=== PATIENT | male | born 1960 | race Caucasian/White ===

== ENCOUNTER 2022-11-09 19:59 | Emergency (ER) | payer BC, SELFPAY ==
--- NOTE | ~2022-11-09 | CT_ITS ---
EXAMINATION: CT ABDOMEN AND PELVIS WITHOUT CONTRAST CLINICAL INFORMATION: Right-sided flank pain. Hematuria. COMPARISON: None TECHNIQUE: Multidetector volumetric imaging was performed from the superior aspect of the liver through the pubic symphysis. Sagittal and coronal reformatted images were obtained on the technologist's workstation. This CT examination was performed using dose optimization techniques as appropriate, variously including the following: *Automated exposure control *Adjustment of mA and/or kV according to patient size (this includes techniques or standardized protocols for targeted exams where dose is matched to indication/reason for exam; i.e. extremities or head) *Use of iterative reconstruction technique DLP: 789 mGy-cm FINDINGS: LUNG BASES: The visualized lung bases are unremarkable. LIVER, GALLBLADDER, AND BILIARY TREE: There are small scattered hypodensities in the liver too small to characterize. Likely hepatic cysts. No intrahepatic bile duct dilatation. The gallbladder is unremarkable with no evidence of radiopaque gallstones, gallbladder wall thickening, or obvious pericholecystic inflammatory changes. PANCREAS: Unremarkable. SPLEEN: Unremarkable. ADRENAL GLANDS: Unremarkable. KIDNEYS AND URETERS: 5 mm stone at the right ureterovesical junction. Image [id number] series 4. There is mild hydronephrosis of the right kidney. There are 2 punctate stones at the midpole of the right kidney. There is a less than 1 mm stone at the lower pole left kidney. No ureteral stone or hydronephrosis. BLADDER: Unremarkable. GASTROINTESTINAL TRACT: The small and large bowel are unremarkable. The appendix is unremarkable. ABDOMINAL WALL: No significant hernia is appreciated. LYMPH NODES: Normal. VASCULAR: Unremarkable. PELVIC VISCERA: Prostate measures 5.6 cm transverse. OSSEOUS STRUCTURES: Unremarkable. CT/CT abdomen pelvis wo IV con IMPRESSION: 5 mm stone at the right ureterovesical junction causing mild hydronephrosis of right kidney. Fleischner guidelines were followed.
--- NOTE | 2022-11-09 20:16 | ED_ITS ---
HPI - Abdominal Pain General Chief Complaint: Abdominal Pain <RADHA Boss - Last Filed: 11/09/22 20:19> Stated Complaint: ?Kidney stones <RADHA Boss - Last Filed: 11/09/22 20:19> Time Seen by Provider: 11/09/22 23:20 <RADHA Boss - Last Filed: 11/09/22 20:19> Source: patient <Jarred Grover MD - Last Filed: 11/10/22 06:32> Mode of arrival: ambulatory <Jarred Grover MD - Last Filed: 11/10/22 06:32> Limitations: no limitations <Jarred Grover MD - Last Filed: 11/10/22 06:32> History of Present Illness HPI narrative: Patient with no history of kidney problems in the past no history of kidney stone been having pain for last 3 days and right lower abdomen now radiating to the right lower back notice small amount of blood [facility] <Jarred Grover MD - Last Filed: 11/10/22 06:32> Related Data Home Medications: Previous Rx's Medication Instructions Recorded oxycodone-acetaminophen 5 mg-325 1 tab PO Q6H PRN pain #20 tabs 11/09/22 mg tablet (Percocet) tamsulosin 0.4 mg capsule (Flomax) 0.4 mg PO BEDTIME #10 caps 11/09/22 <RADHA Boss - Last Filed: 11/09/22 20:19> Allergies/Adverse Reactions: Allergies Allergy/AdvReac Type Severity Reaction Status Date / Time No Known Allergies Allergy Verified 11/09/22 20:16 <RADHA Boss - Last Filed: 11/09/22 20:19> Review of Systems Review of Systems Yes all other systems are reviewed and are negative <Jarred Grover MD - Last Filed: 11/10/22 06:32> [facility] Social History Social History: Social History Alcohol intake: current Alcohol intake frequency: holidays/special occasions only Alcohol type: wine and hard liquor Smoked in Last 30 Days: No Use of substances other than those prescribed or required for medical reasons: No Advance Directives: No Advance Directives Information Provided: Yes <RADHA Boss - Last Filed: 11/09/22 20:19> Physical Exam ED Vital Signs: Vital Signs - 24 hr 11/09/22 20:17 11/09/22 23:12 11/10/22 00:23 Temperature 98.1 F 99.0 F Pulse Rate 76 62 Respiratory Rate 16 16 16 Blood Pressure 130/76 148/80 H Pulse Oximetry 96 98 Oxygen Delivery Method Room Air Room Air BMI result Body Mass Index 32.6 <RADHA Boss - Last Filed: 11/09/22 20:19> Vital Signs - 24 hr 11/09/22 20:17 11/09/22 23:12 11/10/22 00:23 Temperature 98.1 F 99.0 F Pulse Rate 76 62 Respiratory Rate 16 16 16 Blood Pressure 130/76 148/80 H Pulse Oximetry 96 98 Oxygen Delivery Method Room Air Room Air BMI result Body Mass Index 32.6 <Jarred Grover MD - Last Filed: 11/10/22 06:32> Appearance: Alert. Oriented X3. No acute distress. Eyes: PERRLA, No Nystagmus ENT: Pharynx normal. Oral Mucosa moist Neck: Normal inspection. Neck supple. CVS: Normal heart rate and rhythm. Pulses normal. Respiratory: No respiratory distress. Equal air entry bilateral, no wheezing/rales/rhonchi Abdomen: Soft and nontender. Bowel sounds are present, no mass palpable, right CVA tenderness Skin: Skin warm and dry. Normal skin color. Normal skin turgor. Extremities: No lower extremity edema. No calf tendernessNo cerebellar signs , cranial nerves II-XII intact <Jarred Grover MD - Last Filed: 11/10/22 06:32> Course Course Course Narrative: RME - 62 yo male with no significant medical history presents to the ER for evaluation of intermittent right sided flank pain for the last 3 days. States it started RLQ with some difficulty urinating and then has been in the right back since. Went to urgent care today where he was found to have microscopic hematuria, told to come to the ER for further evaluation of possible kidney stones. Appears well in triage. No N/V/D, fever or dysuria. VSS. Will get labs, UA, and CT scan for further evaluation. <RADHA Boss - Last Filed: 11/09/22 20:19> Medical Decision Making Medical Decision Making [facility] Narrative: Patient with 5 mm UVJ stone with mild hydronephrosis level creatinine was 1.76 patient denied any history of kidney problems in the past. Patient was given 2 L of IV fluid advised to follow up with PCP/urologist in 2 days to recheck his kidney functions advised to drink plenty of fluid patient is pain- free at this time <Jarred Grover MD - Last Filed: 11/10/22 06:32> Lab Data [facility] Lab Attestation statement: I reviewed the patient's lab results. <Jarred Grover MD - Last Filed: 11/10/22 06:32> Result Diagrams: 11/09/22 23:00 11/09/22 23:00 <RADHA Boss - Last Filed: 11/09/22 20:19> Labs: Lab Results 11/09/22 11/09/22 11/09/22 Range/Units 23:00 23:00 23:03 WBC 8.1 (4.8-10.8) X10*3/uL RBC 4.62 (4.60-5.80) X10*6/uL Hgb 14.6 (14.0-18.0) g/dl Hct 40.6 L (42.0-52.0) % MCV 87.9 (80.0-98.0) fL MCH 31.6 (27.0-33.0) pg MCHC 36.0 (31.0-36.0) g/dl RDW 11.7 (11.0-16.0) % Plt Count 181 (160-400) X10*3/uL MPV 9.9 (9.4-12.4) fL Immature Gran % (Auto) 0.2 (0.0-0.4) % Neut % (Auto) 66.7 (45-73) % Lymph % (Auto) 22.0 (20-40) % [place] % (Auto) 9.6 (2-11) % Eos % (Auto) 1.1 (0-4) % Baso % (Auto) 0.4 (0-2) % Lymph # (Auto) 1.8 (1.2-4.9) X10*3/uL [place] # (Auto) 0.8 (0.1-1.2) X10*3/uL Eos # (Auto) 0.1 (0.0-0.4) X10*3/uL Baso # (Auto) 0.0 (0.0-0.2) X10*3/uL Abs Immat Gran (auto) 0.02 (0.00-0.03) X10*3/uL Absolute Neuts (auto) 5.4 (2.0-8.3) x10*3/uL Absolute Nucleated RBC 0.000 (0.0-0.012) X10*3/uL Nucleated RBC % (auto) 0.0 (0.0-0.2) /100WBC Sodium 141 (135-145) mmol/L Potassium 3.8 (3.3-5.1) mmol/L Chloride 103 (96-108) mmol/L Carbon Dioxide 25 (22-29) mmol/L Anion Gap 17 (12-20) BUN 21 H (9-16) mg/dL Creatinine 1.76 H (0.5-1.4) mg/dL Estim Creat Clear Calc 49.2 Estimated GFR 39 Random Glucose 90 (60-115) mg/dL Calcium 9.0 (8.4-10.2) mg/dL Magnesium 1.9 (1.6-2.6) mg/dL Total Bilirubin 0.6 (0.0-1.0) mg/dL Direct Bilirubin 0.2 (0.0-0.5) mg/dL AST 17 (5-37) U/L ALT 16 (0-40) U/L Alkaline Phosphatase 47 (39-117) U/L Total Protein 6.1 L (6.5-8.0) g/dL Albumin 4.2 (3.5-5.0) g/dL Urine Color Yellow Urine Appearance Clear Urine pH 5.5 (5.0-9.0) Ur Specific [place] 1.010 (1.005-1.025) Urine Protein Negative (Neg-Trace) mg/dL Urine Glucose (UA) Negative (Negative) mg/dL Urine Ketones 15 (Negative) mg/dL Urine Blood Negative (Negative) Urine Nitrite Negative (Negative) Ur Leukocyte Esterase Negative (Negative) <RADHA Boss - Last Filed: 11/09/22 20:19> Lab Results 11/09/22 11/09/22 11/09/22 Range/Units 23:00 23:00 23:03 WBC 8.1 (4.8-10.8) X10*3/uL RBC 4.62 (4.60-5.80) X10*6/uL Hgb 14.6 (14.0-18.0) g/dl Hct 40.6 L (42.0-52.0) % MCV 87.9 (80.0-98.0) fL MCH 31.6 (27.0-33.0) pg MCHC 36.0 (31.0-36.0) g/dl RDW 11.7 (11.0-16.0) % Plt Count 181 (160-400) X10*3/uL MPV 9.9 (9.4-12.4) fL Immature Gran % (Auto) 0.2 (0.0-0.4) % Neut % (Auto) 66.7 (45-73) % Lymph % (Auto) 22.0 (20-40) % [place] % (Auto) 9.6 (2-11) % Eos % (Auto) 1.1 (0-4) % Baso % (Auto) 0.4 (0-2) % Lymph # (Auto) 1.8 (1.2-4.9) X10*3/uL [place] # (Auto) 0.8 (0.1-1.2) X10*3/uL Eos # (Auto) 0.1 (0.0-0.4) X10*3/uL Baso # (Auto) 0.0 (0.0-0.2) X10*3/uL Abs Immat Gran (auto) 0.02 (0.00-0.03) X10*3/uL Absolute Neuts (auto) 5.4 (2.0-8.3) x10*3/uL Absolute Nucleated RBC 0.000 (0.0-0.012) X10*3/uL Nucleated RBC % (auto) 0.0 (0.0-0.2) /100WBC Sodium 141 (135-145) mmol/L Potassium 3.8 (3.3-5.1) mmol/L Chloride 103 (96-108) mmol/L Carbon Dioxide 25 (22-29) mmol/L Anion Gap 17 (12-20) BUN 21 H (9-16) mg/dL Creatinine 1.76 H (0.5-1.4) mg/dL Estim Creat Clear Calc 49.2 Estimated GFR 39 Random Glucose 90 (60-115) mg/dL Calcium 9.0 (8.4-10.2) mg/dL Magnesium 1.9 (1.6-2.6) mg/dL Total Bilirubin 0.6 (0.0-1.0) mg/dL Direct Bilirubin 0.2 (0.0-0.5) mg/dL AST 17 (5-37) U/L ALT 16 (0-40) U/L Alkaline Phosphatase 47 (39-117) U/L Total Protein 6.1 L (6.5-8.0) g/dL Albumin 4.2 (3.5-5.0) g/dL Urine Color Yellow Urine Appearance Clear Urine pH 5.5 (5.0-9.0) Ur Specific [place] 1.010 (1.005-1.025) Urine Protein Negative (Neg-Trace) mg/dL Urine Glucose (UA) Negative (Negative) mg/dL Urine Ketones 15 (Negative) mg/dL Urine Blood Negative (Negative) Urine Nitrite Negative (Negative) Ur Leukocyte Esterase Negative (Negative) <Jarred Grover MD - Last Filed: 11/10/22 06:32> Medications Administered Discontinued Medications Generic Name Dose Route Start Last Admin Trade Name Alethea PRN Reason Stop Dose Admin Sodium Chloride 1,000 mls @ 999 mls/hr 11/10/22 00:03 11/10/22 01:35 Ns IV 11/10/22 01:03 Infused .Q1H1M ONE Infusion Sodium Chloride 1,000 mls @ 999 mls/hr 11/10/22 01:17 11/10/22 01:36 Ns IV 11/10/22 02:17 999 mls/hr .Q1H1M ONE Administration Morphine Sulfate 2 mg 11/10/22 00:13 11/10/22 00:23 Morphine Sulfate 2 Mg/Ml Cartridge IVPUSH 11/10/22 00:14 2 mg ONCE ONE Administration Protocol Tamsulosin HCl 0.4 mg 11/09/22 23:49 11/10/22 00:23 Tamsulosin Hcl 0.4 Mg Capsule PO 11/09/22 23:50 0.4 mg ONCE ONE Administration <RADHA Boss - Last Filed: 11/09/22 20:19> Medications Administered Discontinued Medications Generic Name Dose Route Start Last Admin Trade Name Alethea PRN Reason Stop Dose Admin Sodium Chloride 1,000 mls @ 999 mls/hr 11/10/22 00:03 11/10/22 01:35 Ns IV 11/10/22 01:03 Infused .Q1H1M ONE Infusion Sodium Chloride 1,000 mls @ 999 mls/hr 11/10/22 01:17 11/10/22 01:36 Ns IV 11/10/22 02:17 999 mls/hr .Q1H1M ONE Administration Morphine Sulfate 2 mg 11/10/22 00:13 11/10/22 00:23 Morphine Sulfate 2 Mg/Ml Cartridge IVPUSH 11/10/22 00:14 2 mg ONCE ONE Administration Protocol Tamsulosin HCl 0.4 mg 11/09/22 23:49 11/10/22 00:23 Tamsulosin Hcl 0.4 Mg Capsule PO 11/09/22 23:50 0.4 mg ONCE ONE Administration <Jarred Grover MD - Last Filed: 11/10/22 06:32> Discharge Plan Discharge Clinical Impression: Calculus of kidney, Acute renal failure <RADHA Boss - Last Filed: 11/09/22 20:19> Patient Disposition: Home, Self-Care <RADHA Boss - Last Filed: 11/09/22 20:19> Instructions: Acute Kidney Injury (DC), Kidney Stones (ED) <RADHA Boss - Last Filed: 11/09/22 20:19> Additional Instructions: Drink plenty of fluids Avoid food containing oxalate Pain medication and Flomax as advised Strain your urine and take the stone to urologist Follow-up with urologist if pain continues your kidney numbers BUN 21, creatinine 1.76, are abnormal need to recheck in 2 days <RADHA Boss - Last Filed: 11/09/22 20:19> Prescriptions: New oxycodone-acetaminophen [Percocet] 5-325 mg tablet 1 tab PO Q6H PRN (Reason: pain) Qty: 20 0RF Rx Instructions: Partial Fill upon patient request. tamsulosin [Flomax] 0.4 mg capsule 0.4 mg PO BEDTIME Qty: 10 0RF <ARDHA Boss - Last Filed: 11/09/22 20:19> Referrals: Yamil Hunter MD [Physician] - 2 days <RADHA Boss - Last Filed: 11/09/22 20:19> Interventions: ED Discharge Assessment Last Done: 11/10/22 03:05 <RADHA Boss - Last Filed: 11/09/22 20:19> Discharge Date/Time: 11/10/22 03:06 <RADHA Boss - Last Filed: 11/09/22 20:19>
[2022-11-09 20:17] VITALS: BP 130/76; PULSE 76; RESP 16; TEMP 36.7; O2SAT 96; BMI 32.6
[2022-11-09 23:10] LABS: MANUAL DIFF FLAG NO
[2022-11-09 23:12] VITALS: BP 148/80; PULSE 62; RESP 16; TEMP 37.2; O2SAT 98
[2022-11-09 23:12] LABS: Basophils Percent Auto 0.4 % (0-2); Eosinophils Absolute Auto 0.1 X10*3/uL (0.0-0.4); Eosinophils Percent Auto 1.1 % (0-4); Hematocrit 40.6 % (42.0-52.0); Hemoglobin 14.6 g/dl (14.0-18.0); Imm Gran Abs Auto 0.02 X10*3/uL (0.00-0.03); Imm Gran Pct Auto 0.2 % (0.0-0.4); Lymphocytes Absolute Auto 1.8 X10*3/uL (1.2-4.9); Mean Corpuscular Hemoglobin 31.6 pg (27.0-33.0); Mean Corpuscular Volume 87.9 fL (80.0-98.0); Mean Platelet Volume 9.9 fL (9.4-12.4); Monocytes Absolute Auto 0.8 X10*3/uL (0.1-1.2); Monocytes Percent Auto 9.6 % (2-11); Neutrophils Absolute Auto 5.4 x10*3/uL (2.0-8.3); Neutrophils Percent Auto 66.7 % (45-73); Platelet Count 181 X10*3/uL (160-400); Red Blood Count 4.62 X10*6/uL (4.60-5.80); Red Cell Distribution Width 11.7 % (11.0-16.0); White Blood Count 8.1 X10*3/uL (4.8-10.8)
[2022-11-09 23:13] LABS: Appearance Urine Clear; Color Urine Yellow; Glucose Urine UA Negative (Negative); Leukocyte Esterase Urine Negative (Negative); Nitrite Urine Negative (Negative); PH 5.5 (5.0-9.0); Urine Blood Negative (Negative); Urine Ketones 15 mg/dL (Negative); Urine Protein Negative (Neg-Trace)
[2022-11-09 23:32] LABS: Alanine Aminotransferase 16 U/L (0-40); Albumin Level 4.2 g/dL (3.5-5.0); Alkaline Phosphatase 47 U/L (39-117); Anion Gap 17 (12-20); Aspartate Amino Transferase 17 U/L (5-37); Bilirubin Direct 0.2 mg/dL (0.0-0.5); Bilirubin Total 0.6 mg/dL (0.0-1.0); Blood Urea Nitrogen 21 mg/dL (9-16); Carbon Dioxide 25 mmol/L (22-29); Chloride 103 mmol/L (96-108); Creatinine Clr Calc Pharmacy 49.2; Estimated Glomerular Filt Rate 39; Glucose Random 90 mg/dL (60-115); Magnesium 1.9 mg/dL (1.6-2.6); Potassium 3.8 mmol/L (3.3-5.1); Sodium 141 mmol/L (135-145); Total Protein 6.1 g/dL (6.5-8.0)
[2022-11-10 00:23] VITALS: RESP 16
[2022-11-10] MEDS: Tamsulosin HCL 0.4 MG CAPSULE PO (00:23)
[2022-11-10] MEDS: Morphine Sulfate 2 MG/ML CARTRIDGE IVPUSH (00:23)
[2022-11-10] MEDS: 0.9 % Sodium Chloride 1,000 ML 999 ML IV ×2 (00:24→01:36)
--- NOTE | 2022-11-10 00:40 | PC.NURSE ---
Addendum entered by Eboni Hurtado 11/10/22 00:50: Morphine 2 mg IV push administered per MAR. Original Note: Patient is alert and oriented x3. Patient is able to make his needs known. Patient ambulates independently. Gait is steady. He c/o right flank pain 5/10 at present. He describes pain as achy and steady. Patient denies issues with urination. He reports urine flow is adequate. 20 G IV line established in R AC. Flomax 0.4 mg PO, Morphine 2 g IV push administered per MAR. NS bolus started and infusing w/o issues. Patient is currently resting in bed, call ley within patient's reach.
== END 2022-11-10 03:06 | disposition home or self-care (01) ==
PROVIDERS: Physician Assistant; Emergency Provider Internal Medicine
DX: N20.0 Calculus of kidney (principal); N17.9 Acute kidney failure, unspecified; Z79.899 Other long term (current) drug therapy
CPT/HCPCS: 36415; 74176; 80048; 80076; 81003; 83735; 85025; 96361; 96374; 99284; J2270

== ENCOUNTER → 2022-12-07 14:33 | Outpatient (BNVA) | payer BC, SELFPAY | PROVIDERS: Visit Provider Nurse Practitioner Family | DX: Z13.89 Encounter for screening for other disorder (principal) ==

== ENCOUNTER 2022-12-28 11:24 | Outpatient (REF) | payer BC, SELFPAY ==
--- NOTE | ~2022-12-28 | US_ITS ---
EXAMINATION: US RETROPERITONEAL LIMITED (RENAL ONLY) CLINICAL INFORMATION: Calculus of kidney. COMPARISON: CT abdomen and pelvis without contrast 11/09/2022. TECHNIQUE: Real-time imaging of the kidneys. FINDINGS: RIGHT KIDNEY: 11.3 x 6.7 x 6.0 cm (SAG x AP x TRV). The kidney is normal in size, contour, and echogenicity. Renal cortical thickness is normal. No calculi or focal parenchymal lesions. No hydronephrosis. LEFT KIDNEY: 11.2 x 6.3 x 5.6 cm (SAG x AP x TRV). The kidney is normal in size, contour, and echogenicity. Renal cortical thickness is normal. No calculi or focal parenchymal lesions. No hydronephrosis. US/US renal BI IMPRESSION: No hydronephrosis or nephrolithiasis.
== END 2022-12-28 11:25 | disposition home or self-care (01) ==
LOC: HO.US 11:24
PROVIDERS: Visit Provider Nurse Practitioner Family
DX: N20.0 Calculus of kidney (principal)
CPT/HCPCS: 76775

== ENCOUNTER → 2023-01-04 09:36 | Outpatient (BNVA) | payer BC, SELFPAY | PROVIDERS: Visit Provider Nurse Practitioner Family | DX: Z13.89 Encounter for screening for other disorder (principal) ==